=== PATIENT | female | born 1980 | race African-American/Black ===

== ENCOUNTER 2018-03-10 21:28 | Emergency (ER) | payer OTHER ==
[2018-03-10 21:40] VITALS: BP 141/77
[2018-03-10] MEDS ORDERED: CYCL-331 PO (22:38)
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
== END 2018-03-10 23:00 | disposition home or self-care (01) ==
LOC: ER 21:28
DX: S16.1XXA Strain of muscle, fascia and tendon at neck level, initial encounter (principal); S29.012A Strain of muscle and tendon of back wall of thorax, initial encounter; R07.89 Other chest pain; V43.62XA Car passenger injured in collision with other type car in traffic accident, initial encounter; Y93.89 Activity, other specified; Y92.488 Other paved roadways as the place of occurrence of the external cause; Y99.8 Other external cause status
CPT/HCPCS: 99283

== ENCOUNTER 2021-01-11 13:39 | Inpatient (IN) | payer SELFPAY ==
[~2021-01-11] VITALS: Ht 167.6 cm; Wt 143.6 kg
[~2021-01-11 13:39] MED LIST: CYCL-331 PO
[2021-01-11] MEDS ORDERED: IV NORMAL SALINE 1,000ML 1,000 ML IV ONE (14:00)
[2021-01-11] MEDS ORDERED: BENZONATATE 100 MG CAPSULE. PO ONE (14:00)
[2021-01-11] MEDS ORDERED: methylPREDNISolone SOD SUCC PF 125 MG/2 ML VIAL. IV ONE (14:00)
[2021-01-11] MEDS ORDERED: IPRATRPIUM/ALBUTEROL 0.5/2.5MG 3 ML NEBU. NEB ONE (14:00)
[2021-01-11 14:08] LABS: BASO % 0 % (0-3); EOS % 0 % (0-3); HEMATOCRIT 36.7 % (36.0-47.0); HEMOGLOBIN 11.5 g/dL (12.0-15.5); LYMPH # 0.8 x10^3/uL (1.0-4.8); LYMPH % 10 % (24-48); MEAN CORPUSCULAR HEMOGLOBIN 26 pg (25-35); MEAN CORPUSCULAR HGB CONC 32 g/dL (31-37); MEAN CORPUSCULAR VOLUME 82 fL (79-100); MONO # 0.2 x10^3/uL (0.0-1.1); MONO % 3 % (0-9); NEUT # 7.2 x10^3uL (1.8-7.7); NEUT % 87 % (31-73); PLATELET COUNT 270 x10^3/uL (140-400); RED BLOOD COUNT 4.49 x10^6/uL (3.50-5.40); RED CELL DISTRIBUTION WIDTH 15.3 % (11.5-14.5); WHITE BLOOD COUNT 8.2 x10^3/uL (4.0-11.0)
[2021-01-11 14:18] LABS: CALCIUM 8.4 mg/dL (8.5-10.1); GFR 73.6; POTASSIUM 3.4 mmol/L (3.5-5.1)
--- NOTE | 2021-01-11 14:27 | RAD ---
EXAM: CHEST 1 VIEW History: Cough COMPARISON: 11/29/2008 TECHNIQUE: Single portable radiograph of the chest FINDINGS: Low lung volumes and technique accentuates the prostate. There are patchy airspace opaciti es bilateral lungs The costophrenic sulci are clear and well demarcated. IMPRESSION: Patchy airspace opacities bilateral lungs likely atelectasis or infiltrates. Follow-up t o resolution. Electronically signed by: Silvino Chatman MD (01/11/2021 2:24 PM) [id number]
--- NOTE | 2021-01-11 15:09 | PHYS DOC ---
Past History Past Medical History: Asthma Past Surgical History: Alcohol Use: None Drug Use: None Adult General Chief Complaint Chief Complaint: SHORTNESS OF BREATH HPI HPI Patient is a 40-year-old female presenting for shortness of breath. Onset was approximately 5 or 6 days ago without any known inciting event. Patient admits having history of asthma and allergies and takes chronic medications for both. Admits approximately 4 days ago that her symptoms worsen prompting her to visit her primary care physician. Patient was diagnosed with an upper respiratory tract infection versus acute exasperation of asthma and so, patient was sent home on Medrol Dosepak for which she states did not help that much. She called back her primary care physician 2 days ago and notified her of worsening symptoms and so, patient was prescribed a Z-Kendrick. She is currently on day 2 of this and feels as though "I felt as though I was going to take my last breath earlier this morning" and so, patient presented to our ER for evaluation. She has history of fever greater than 100.4 that was measured twice in the past 5 days but responded with Tylenol administration, no vision changes or chest pain, admits increased shortness of breath wheezing and nonproductive coughing for which she has been using Mucinex and nasal sinus rinses without relief, no abdominal pain, no dysuria. She has no history of tobacco abuse, hemoptysis, long distance travel, recent sick contacts, exogenous estrogen use Review of Systems Review of Systems Fourteen body systems of review of systems have been reviewed. See HPI for pertinent positives and negative responses, other melo all other systems are negative, non-pertinent or non-contributory Current Medications Current Medications Current Medications Medications (Trade) Dose Ordered Sig/Sonya Start Time Stop Time Status Last Admin Dose Admin Albuterol/ Ipratropium (Duoneb) 3 ml 1X ONCE 01/11/21 14:00 01/11/21 14:10 DC 01/11/21 14:10 3 ML Benzonatate (Tessalon Perle) 100 mg 1X ONCE 01/11/21 14:00 01/11/21 14:10 DC 01/11/21 14:24 100 MG Methylprednisolone Sodium Succinate (SOLU-Medrol 125MG VIAL) 125 mg 1X ONCE 01/11/21 14:00 01/11/21 14:10 DC 01/11/21 14:24 125 MG Sodium Chloride 1,000 ml @ 1,000 mls/hr 1X ONCE 01/11/21 14:00 01/11/21 14:59 DC 01/11/21 14:24 1,000 MLS/HR Allergies Allergies Allergies Coded Allergies Type Severity Reaction Last Updated Verified Sulfa (Sulfonamide Antibiotics) Allergy Unknown 03/11/18 Yes doxycycline Allergy Unknown 03/11/18 Yes influenza virus vaccine, specific Allergy Unknown 03/11/18 Yes promethazine Allergy Unknown 03/11/18 Yes Physical Exam Physical Exam General: Appears well, morbidly obese, non toxic, and comfortable Skin: Warm, dry. Normal for ethnicity. HEENT: Atraumatic. PERRLA. Rhinorrhea and congestion. Nasal turbinates boggy b/l. Moist mucous membranes. Uvula midline. Maintaining secretions. No phonation changes. Neck: Trachea midline. Normal ROM. No stridor. Respiratory: Normal WOB. CTAB w/o w/r/r. No tachypnea. Lung sounds are diminished globally likely due to body habitus Cardiovascular: Tachycardic rate with regular rhythm. Normal peripheral perfusio n. Abdomen: Soft. Non tender. No distension. Back: Normal ROM. Musculoskeletal: No swelling or deformity. Neuro: Alert and oriented x 4. MAEE. Lymph: No cervical LAD. Psych: Anxious affect and mood Current Patient Data Vital Signs Vital Signs Date Time Temp Pulse Resp B/P (MAP) Pulse Ox O2 Delivery O2 Flow Rate FiO2 01/11/21 14:10 92 Room Air 01/11/21 13:52 98.6 01/11/21 13:46 111 18 146/66 (92) Lab Results Laboratory Tests Test 01/11/21 13:49 White Blood Count 8.2 x10^3/uL (4.0-11.0) Red Blood Count 4.49 x10^6/uL (3.50-5.40) Hemoglobin 11.5 g/dL (12.0-15.5) L Hematocrit 36.7 % (36.0-47.0) Mean Corpuscular Volume 82 fL (79-100) Mean Corpuscular Hemoglobin 26 pg (25-35) Mean Corpuscular Hemoglobin Concent 32 g/dL (31-37) Red Cell Distribution Width 15.3 % (11.5-14.5) H Platelet Count 270 x10^3/uL (140-400) Neutrophils (%) (Auto) 87 % (31-73) H Lymphocytes (%) (Auto) 10 % (24-48) L Monocytes (%) (Auto) 3 % (0-9) Eosinophils (%) (Auto) 0 % (0-3) Basophils (%) (Auto) 0 % (0-3) Neutrophils # (Auto) 7.2 x10^3uL (1.8-7.7) Lymphocytes # (Auto) 0.8 x10^3/uL (1.0-4.8) L Monocytes # (Auto) 0.2 x10^3/uL (0.0-1.1) Eosinophils # (Auto) 0.0 x10^3/uL (0.0-0.7) Basophils # (Auto) 0.0 x10^3/uL (0.0-0.2) Sodium Level 137 mmol/L (136-145) Potassium Level 3.4 mmol/L (3.5-5.1) L Chloride Level 101 mmol/L (98-107) Carbon Dioxide Level 26 mmol/L (21-32) Anion Gap 10 (6-14) Blood Urea Nitrogen 8 mg/dL (7-20) Creatinine 1.0 mg/dL (0.6-1.0) Estimated GFR (Cockcroft-Gault) 73.6 Glucose Level 98 mg/dL (70-99) Calcium Level 8.4 mg/dL (8.5-10.1) L EKG EKG EKG ordered and interpreted by myself at 1619 hrs. as sinus rhythm at 104 bpm, unremarkable intervals, no axis deviation, no obvious ischemic findings, no STEMI but exam is limited due to misplaced lead on V6 Radiology/Procedures Radiology/Procedures EXAM: CHEST 1 VIEW History: Cough COMPARISON: 11/29/2008 TECHNIQUE: Single portable radiograph of the chest FINDINGS: Low lung volumes and technique accentuates the prostate. There are patchy airspace opacities bilateral lungs The costophrenic sulci are clear and well demarcated. IMPRESSION: Patchy airspace opacities bilateral lungs likely atelectasis or infiltrates. Follow-up to resolution. Electronically signed by: Silvino Chatman MD (01/11/2021 2:24 PM) [id number] /////////////////// CTA CHEST INDICATION: SHOB. Dyspnea Comparison: Chest radiograph 01/11/2021. CT 02/12/2017. TECHNIQUE: Following the uneventful administration of intravenous contrast, axial CT sections were obtained through the lungs and upper abdomen. Multiplanar reconstructions and MIP images were obtained. RS compliance statement: One or more of the following individualized dose reduction techniques were utilized for this examination: 1. Automated exposure control 2. Adjustment of the mA and/or kV according to patient size 3. Use of iterative reconstruction technique FINDINGS: Pulmonary arteries: No large central pulmonary thromboembolic disease. Lobar and segmental branches not well evaluated due to suboptimal contrast opacification. Lungs and Airways: Multifocal bilateral groundglass opacities and consolidations. No abnormality of the central airways. Pleura: The pleural spaces are normal. Heart and Mediastinum: The visualized thyroid is normal in size and attenuation. No axillary or supraclavicular lymphadenopathy. No mediastinal, hilar or retrocrural lymphadenopathy. Cardiomegaly. No pericardial effusion. Normal caliber thoracic aorta. Abdomen: Limited images through the upper abdomen show no abnormality of the visualized organs. Bones and Soft Tissues: The visualized bones and chest wall soft tissues are within normal limits. IMPRESSION: 1. No large central pulmonary thromboembolic disease. Lobar and segmental branches not well evaluated due to suboptimal contrast opacification. 2. Diffuse bilateral groundglass opacities and consolidations, likely pulmonary edema or multifocal infection Electronically signed by: Hayden Greer MD (01/11/2021 4:14 PM) [facility] Heart Score C/O Chest Pain: No HEART Score for Chest Pain: HEART Score for Chest Pain Response (Comments) Value History Slighlty/Non-Suspicious 0 ECG Normal 0 Age < 45 0 Risk Factors 1 or 2 Risk Factors 1 Troponin < Normal Limit 0 Total 1 Risk Factors: Risk Factors: DM, Current or recent (<one month) smoker, HTN, HLP, family history of CAD, obesity. Risk Scores: Risk Factors: DM, Current or recent (<one month) smoker, HTN, HLP, family history of CAD, obesity. Course & Med Decision Making Course & Med Decision Making Airway patent, breathing unlabored, IV access and vitals obtained concerning for mild tachycardia and occasional oxygen desaturations into the 80s with physical exertion HPI, physical exam and comprehensive diagnostic ER work-up obtained concerning for pneumonia. I disclosed I could not rule out COVID-19 in unvaccinated individual despite no known COVID-19 positive suspects. Joint decision made to test for COVID-19 with results pending Patient did not respond to ER intervention. Despite being hemodynamically stable, patient did not feel safe going home especially due to ongoing desaturations into the 80s with physical exertion and transferring. She is not safe for home discharge given current state of disease As such, I contacted hospitalist and reviewed case at length. Patient was excepted under the care of Dr. Contreras for admission for continued inpatient medical management I updated patient on proposed plan of care and she was amenable for hospital admission. Reiterates she is full CODE STATUS. All questions and concerns addressed prior to hospital admission Critical Care Time This patient required critical care. Due to the fact that the patient required a significant amount of one on one physician - patient contact time, ordering and review of studies, arranging urgent treatment with development of a management plan, evaluation of patients response to treatment with frequent reassessments, and discussions with other providers this patient required 40 Dragon Disclaimer Dragon Disclaimer This electronic medical record was generated, in whole or in part, using a voice recognition dictation system. PERC Rule for PE PERC Rule for PE Response (Comments) Value Age > 50: No 0 HR > 100: Yes 1 Sa02 on room air <95%: Yes 1 Unilateral leg swelling: No 0 Hemoptysis: No 0 Recent surgery or trauma: No 0 Prior PE or DVT: No 0 Hormone use: No 0 Total 2 Departure Departure: Impression: Primary Impression: Pneumonia Disposition: ADMITTED INPATIENT Admitting Physician: Remigio Contreras Condition: STABLE Referrals: GOYO RAHMAN APRN (PCP) FRANCISCO WYATT DO Jan 11, 2021 15:09
[2021-01-11] MEDS ORDERED: IOHEXOL 350 MG/ML 100 ML VIAL. IV ONE (15:45)
--- NOTE | 2021-01-11 16:16 | RAD ---
CTA CHEST INDICATION: SHOB. Dyspnea Comparison: Chest radiograph 01/11/2021. CT 02/12/2017. TECHNIQUE: Following the uneventful administration of intravenous contrast, axial CT sections were ob tained through the lungs and upper abdomen. Multiplanar reconstructions and MIP images were obtained. PQRS compliance statement: One or more of the following individualized dose reduction techniques were utilized for this examinat ion: 1. Automated exposure control 2. Adjustment of the mA and/or kV according to patient size 3. Use of iterative reconstruction technique FINDINGS: Pulmonary arteries: No large central pulmonary thromboembolic disease. Lobar and segmental branches n ot well evaluated due to suboptimal contrast opacification. Lungs and Airways: Multifocal bilateral groundglass opacities and consolidations. No abnormality of t he central airways. Pleura: The pleural spaces are normal. Heart and Mediastinum: The visualized thyroid is normal in size and attenuation. No axillary or supra clavicular lymphadenopathy. No mediastinal, hilar or retrocrural lymphadenopathy. Cardiomegaly. No pe ricardial effusion. Normal caliber thoracic aorta. Abdomen: Limited images through the upper abdomen show no abnormality of the visualized organs. Bones and Soft Tissues: The visualized bones and chest wall soft tissues are within normal limits. IMPRESSION: 1. No large central pulmonary thromboembolic disease. Lobar and segmental branches not well evaluated due to suboptimal contrast opacification. 2. Diffuse bilateral groundglass opacities and consolidations, likely pulmonary edema or multifocal i nfection Electronically signed by: Hayden Greer MD (01/11/2021 4:14 PM) [facility]
[2021-01-11] MEDS ORDERED: ACETAMINOPHEN 325 MG TABLET PO PRN (17:00)
[2021-01-11] MEDS ORDERED: NITROGLYCERIN SUBLINGUAL 0.4 MG BOTTLE OF 25. SL PRN (17:00)
[2021-01-11] MEDS ORDERED: IV NORMAL SALINE 50ML 50 ML ONE (17:29)
[2021-01-11] MEDS ORDERED: cefTRIAXone SODIUM 1 GM VIAL ONE (17:29)
[2021-01-11 19:14] VITALS: BP 131/72
[2021-01-11] MEDS ORDERED: IPRATRPIUM/ALBUTEROL 0.5/2.5MG 3 ML NEBU. NEB SCH (20:00)
[2021-01-11] MEDS ORDERED: CETI10TA74 PO ×2 (20:24→20:58)
[2021-01-11] MEDS ORDERED: DICL50TA2 PO (20:50)
[2021-01-11] MEDS: methylPREDNISolone SOD SUCC PF 125 MG/2 ML VIAL. IV SCH (21:28)
[2021-01-11] MEDS: IPRATROPIUM/ALBUTEROL 20/100mcg/INH INHALER. INH SCH (21:28)
[2021-01-11] MEDS: CETIRIZINE HCL 10 MG TABLET PO SCH (21:28)
[2021-01-11] MEDS: MORPHINE SULFATE 4 MG/ML DISP.SYRIN. IV PRN (21:29)
--- NOTE | 2021-01-11 22:21 | EKG ---
[address] [address] Test Date: 2021-01-11 Test Time: 16:10:30 Pat Name: TONIO DAN Department: Room: Gender: F Scaleman: WILI : 1980 Requested By: FRANCISCO WYATT Order Number: [id number] Reading MD: Measurements Intervals [place] Rate: 104 P: 28 MI: 114 QRS: 12 QRSD: 64 T: -1 QT: 322 QTc: 429 Interpretive Statements Cannot analyze ECG CHEST LEAD(S) MISSING! (Measurements might be questionable) RI6.02 Compared to ECG 01/11/2021 16:08:22 No significant changes
[2021-01-12] MEDS: methylPREDNISolone SOD SUCC PF 125 MG/2 ML VIAL. IV SCH ×3 (06:24→19:41)
[2021-01-12 06:30] VITALS: BP 109/74
[2021-01-12] MEDS: LACTOBACILLUS RHAMNOSUS GG 1 CAPSULE. PO SCH ×2 (08:01→19:41)
[2021-01-12] MEDS: CETIRIZINE HCL 10 MG TABLET PO SCH ×2 (08:01→19:41)
[2021-01-12] MEDS: IPRATROPIUM/ALBUTEROL 20/100mcg/INH INHALER. INH SCH ×4 (08:01→20:00)
[2021-01-12] MEDS: MORPHINE SULFATE 4 MG/ML DISP.SYRIN. IV PRN ×2 (08:01→22:34)
[2021-01-12] MEDS ORDERED: IPRATRPIUM/ALBUTEROL 0.5/2.5MG 3 ML NEBU. ONE (08:54)
--- NOTE | 2021-01-12 10:08 | HP ---
ATTENDING PHYSICIAN: Dr. Contreras. CHIEF COMPLAINT: Shortness of breath. HISTORY OF PRESENT ILLNESS: The patient is a 40-year-old female admitted with a 2-day history of increasing shortness of breath. She has had a dry nonproductive cough. She has underlying asthma that is intrinsic. She is a nonsmoker, not exposed to secondhand smoke. She has not been at work for the last several months due to Workmen's Comp injury. She was prompted to go and see her primary care doctor. She recommended a Medrol Dosepak, which really did not help much. She went to the ED. The chest x-ray was fairly nondiagnostic; however, the CT of the chest was done, which showed evidence of ground glass appearance of diffuse infiltrate in the bases consistent with atypical pneumonia. She was given Rocephin along with breathing treatment and steroids and admitted for acute on chronic respiratory failure, exacerbation of asthma and bilateral infiltrates consistent with atypical pneumonia. PAST MEDICAL HISTORY: Significant for longstanding asthma. She is a nonsmoker. She has had a previous section. ALLERGIES: She has multiple allergies including SULFA DRUGS, DOXYCYCLINE, INFLUENZA VACCINE. She is allergic to FLU SHOTS and therefore has not had her coronavirus vaccines. She has been homebound. She is a [employer]. She has not worked since June. CURRENT MEDICINES: Include [id number] ibuprofen. No blood pressure or asthma meds at this time. SOCIAL HISTORY: She is a nonsmoker, nondrinker. Her parents are alive. She has 2 grown children, one daughter who had recent twins. REVIEW OF SYSTEMS: Significant for the morbid obesity. Her weight on admission was 143 kilograms, which correlates to 310 pounds. Her BMI was 51. She had no recent COVID exposure. She is a nonsmoker. No nausea or vomiting. The cough is nonproductive. She has had low-grade temperatures. All other systems reviewed and turned to be negative. PHYSICAL EXAMINATION: GENERAL: When I saw her, this is a pleasant young female. INITIAL VITAL SIGNS: Showed blood pressure 109/74 mmHg, her pulse is 84 and regular. She was afebrile with a temperature 98.4 degrees Fahrenheit and her oxygen saturations initially were maintained on 3 liters of supplemental oxygen by nasal cannula. HEENT: Head is without trauma. Pupils are reactive. Sclerae is nonicteric. The oropharynx is clear. NECK: Supple. No stridor. LUNGS: Diffuse wheezing in the bases. CARDIOVASCULAR: Showed regular heart tones, distant. No gallops. ABDOMEN: Soft, obese, protuberant. EXTREMITIES: Without edema. NEUROLOGIC FUNCTION: Focally intact. PERTINENT LABORATORY AND EXTRA STUDIES: CT angiogram as noted. No blood clots, but she had diffuse ground-glass appearing infiltrates at the base. Her hemoglobin is 11.5 g/dL with a white count of 8200. Electrolytes: Sodium 137 mEq, potassium 3.4, creatinine 1.0 mg/dL. Nonfasting blood sugar was 98. ASSESSMENT: 1. This 40-year-old female has exacerbation of asthma. 2. Acute on chronic respiratory failure. 3. Diffuse ground-glass appearance with atypical pneumonia on CT angiogram. 4. Rule out coronavirus infection. 5. Morbid obesity. PLAN: 1. Admit to the intensive care unit. 2. Supplemental oxygen to maintain oxygen saturations. 3. Solu-Medrol administered. 4. Empiric antibiotics. 5. Await coronavirus swab. AVI DR: Jared TID: [id number] CC: JAQUI DOVER MD
[2021-01-12] MEDS: IPRATRPIUM/ALBUTEROL 0.5/2.5MG 3 ML NEBU. NEB SCH ×3 (11:30→20:00)
[2021-01-12 11:33] VITALS: BP 109/74
[2021-01-12] MEDS: ALPRAZolam 0.5 MG TABLET PO PRN (14:18)
[2021-01-12] MEDS ORDERED: HYDROcodone/CHLORPHEN POLIS 5 ML SUS.ER.12H PO PRN (14:30)
[2021-01-12 16:00] VITALS: BP 131/72
[2021-01-12] MEDS: ENOXAPARIN 40 MG/0.4 ML SYRINGE. SQ SCH (17:00)
[2021-01-12 20:00] VITALS: BP 126/71
[2021-01-13] MEDS: ENOXAPARIN 40 MG/0.4 ML SYRINGE. SQ SCH (02:13)
[2021-01-13] MEDS: IPRATRPIUM/ALBUTEROL 0.5/2.5MG 3 ML NEBU. NEB SCH (05:00)
[2021-01-13] MEDS: methylPREDNISolone SOD SUCC PF 125 MG/2 ML VIAL. IV SCH (05:05)
[2021-01-13 06:20] VITALS: BP 119/72
[2021-01-13 07:06] LABS: BASO % 0 % (0-3); EOS % 0 % (0-3); HEMATOCRIT 35.7 % (36.0-47.0); HEMOGLOBIN 11.3 g/dL (12.0-15.5); LYMPH # 0.6 x10^3/uL (1.0-4.8); LYMPH % 7 % (24-48); MEAN CORPUSCULAR HEMOGLOBIN 26 pg (25-35); MEAN CORPUSCULAR HGB CONC 32 g/dL (31-37); MEAN CORPUSCULAR VOLUME 81 fL (79-100); MONO # 0.3 x10^3/uL (0.0-1.1); MONO % 4 % (0-9); NEUT # 7.7 x10^3uL (1.8-7.7); NEUT % 89 % (31-73); PLATELET COUNT 301 x10^3/uL (140-400); RED CELL DISTRIBUTION WIDTH 15.5 % (11.5-14.5); WHITE BLOOD COUNT 8.6 x10^3/uL (4.0-11.0)
[2021-01-13 07:14] LABS: ALBUMIN 2.7 g/dL (3.4-5.0); ALBUMIN/GLOBULIN RATIO 0.5 (1.0-1.7); CALCIUM 8.7 mg/dL (8.5-10.1); CREATININE 0.9 mg/dL (0.6-1.0); GFR 83.1; POTASSIUM 4.1 mmol/L (3.5-5.1); TOTAL BILIRUBIN 0.2 mg/dL (0.2-1.0); TOTAL PROTEIN 7.7 g/dL (6.4-8.2)
[2021-01-13] MEDS ORDERED: IPRATRPIUM/ALBUTEROL 0.5/2.5MG 3 ML NEBU. NEB SCH (08:30)
[2021-01-13 08:36] VITALS: BP 130/74
--- NOTE | 2021-01-13 10:04 | DS ---
ATTENDING PHYSICIAN: Dr. Contreras. FINAL DISCHARGE DIAGNOSES: 1. COVID-19 pneumonia, bibasilar. 2. Acute respiratory failure requiring high flow oxygen. 3. Exacerbation of asthma. 4. Morbid obesity. 5. Hypoxemia. HISTORY AND PHYSICAL: The patient is a 40-year-old female admitted through the ED on 01/11/[address] of the chest with ground glass appearing infiltrate in both lower lobes. At that time, she required 3 liters of supplemental oxygen to maintain saturations above 90%. PHYSICAL EXAMINATION: Please see the dictated note. PERTINENT LABORATORY AND X-RAY STUDIES: Admission hemoglobin was 11.5 g/dL with a white count of 8200. Chemistry panel within range. Potassium was 4.1 mEq/L, creatinine 0.9 mg percent. Sodium 141. Nonfasting blood sugar 143. Transaminases and liver functions were normal. Chest x-ray and CT as noted. Serology was positive for coronavirus. COURSE IN THE HOSPITAL: The patient was admitted. We started her initially on empiric IV antibiotics as well as steroids and nebulizer therapy. She did not improve by the second hospital day, she was up to 6 liters of supplemental oxygen nasal cannula and on the third day on the morning of the , she was increased to 100% by nonrebreather with marginal saturations. Because of her symptoms, her GERD and the fact that she was requiring more oxygen, I felt that she needs a higher level of care. Therefore, I spoke with the [facility], Dr. Weber, their hospitalist button and buckle maker was gracious enough to accept the patient and transfer to the ICU. We will continue the steroids. He inquired about remdesivir. We had not time to order remdesivir while at [facility], that can be started when she gets admitted to [facility]. On the third hospital day, arrangements were made for transfer of the patient by ambulance to [facility] to their ICU under the care of Dr. Weber, their hospitalist on duty. She was discharged then to another hospital with a higher level of care from this hospital in stable condition with explicit drug and followup care. He will decide the dosages of continued steroids. She did receive empiric Lovenox while she is here. Other home meds were held. Total discharge time spent [address]: DANILO/rohan TID: [id number] CC: JAQUI Weber MD
[2021-01-13] MEDS: MORPHINE SULFATE 4 MG/ML DISP.SYRIN. IV PRN (10:13)
[2021-01-13] MEDS: ALPRAZolam 0.5 MG TABLET PO PRN (10:13)
[2021-01-13 10:43] VITALS: BP 110/75
[2021-01-13] MEDS ORDERED: ENOXAPARIN ** NOTE DOSE ** SYRINGE SQ SCH (11:00)
== END 2021-01-13 10:45 | disposition short-term general hospital (02) | DRG 177 ==
LOC: ER 13:39 → ICU 16:54
PROVIDERS: ADMIT Hospitalist; ATTEND Hospitalist
DX: U07.1 COVID-19 (principal); J12.82 Pneumonia due to coronavirus disease 2019; J96.21 Acute and chronic respiratory failure with hypoxia; J45.901 Unspecified asthma with (acute) exacerbation; J81.1 Chronic pulmonary edema; Z68.43 Body mass index [BMI] 50.0-59.9, adult; E66.01 Morbid (severe) obesity due to excess calories; K21.9 Gastro-esophageal reflux disease without esophagitis; Z88.2 Allergy status to sulfonamides; Z88.7 Allergy status to serum and vaccine; Z88.8 Allergy status to other drugs, medicaments and biological substances
CPT/HCPCS: 36415; 71045; 71275; 80048; 80053; 85025; 93005; 94640; 94760; 96361; 96374; J0696; J1650; J2270; J2930; Q9967; U0003; 99291-25; J7030